=== PATIENT | female | born 1950 | race Caucasian/White ===

== ENCOUNTER 2016-09-26 10:03 | Outpatient (CLI) | payer MEDICARE, OTHER ==
[2016-09-26 10:41] LABS: EOSINOPHILS % 1.5 % (0.0-6.8); MEAN CORPUSCULAR HEMOGLOBIN 31.2 pg (28.0-34.0); MONOCYTES % 6.4 % (0.0-11.0); NEUTROPHILS # 3.2 # k/uL (1.4-7.7)
[2016-09-26 11:03] LABS: eGFR (African) > 60; eGFR (Non-African) > 60
== END 2016-09-26 10:04 ==
LOC: LAB 10:03
PROVIDERS: ATTEND Physician Assistant
DX: Z51.81 Encounter for therapeutic drug level monitoring (principal); Z79.899 Other long term (current) drug therapy; L40.0 Psoriasis vulgaris
CPT/HCPCS: 36415; 80053; 85025